=== PATIENT | female | born 1975 | race Caucasian/White ===

== ENCOUNTER 2016-05-10 07:00 | Day surgery (SDC) | payer OTHER ==
[~2016-05-10 07:00] MED LIST: RINGERS SOLUTION,LACTATED 1,000 ML IV PRN
[2016-05-10] MEDS ORDERED: RINGERS SOLUTION,LACTATED 1,000 ML IV ONE ×3 (07:35→13:40)
[2016-05-10] MEDS ORDERED: LIDOCAINE HCL/EPINEPHRINE 50 ML VIAL IJ ONE ×2 (08:00)
[2016-05-10] MEDS ORDERED: ceFAZolin SODIUM 1 GM VIAL IV ONE (08:25)
[2016-05-10] MEDS ORDERED: MORPHINE SULFATE 2 MG/ML DISP.SYRIN IV PRN (15:30)
[2016-05-10] MEDS ORDERED: IBUPROFEN 800 MG TABLET PO PRN (15:31)
[2016-05-10] MEDS ORDERED: oxyCODONE HCL/ACETAMINOPHEN 1 TAB TABLET PO PRN (15:31)
--- NOTE | 2016-05-10 16:30 | OR ---
Operative Report - Dictated Report Narrative: DATE OF PROCEDURE: 05/10/2016 INDICATION: 40-year-old with chronic pelvic pain, dysmenorrhea, persistent complex left adnexal mass, and menometrorrhagia presents for surgical evaluation. PREOPERATIVE DIAGNOSIS: Chronic pelvic pain, dysmenorrhea, menometrorrhagia, persistent left ovarian cyst POSTOPERATIVE DIAGNOSIS: Same, with extensive endometriosis, endometrial polyps , uterine fibroids, left ovarian endometrioma PROCEDURE: Diagnostic laparoscopy, extensive excision of endometriosis, coagulation of endometriosis, lysis of adhesions, bilateral ureteral lysis, left ovarian cystectomy, diagnostic hysteroscopy, D&C SURGEON: Keanu Ford D.O. BOBJ DEVELOPER: None ANESTHESIA: General ESTIMATED BLOOD LOSS: 50 mL URINE OUTPUT: 600 mL clear urine FLUID REPLACEMENT: 2100 mL crystalloid FINDINGS: Hemosiderin deposits scattered over the entire omentum, abdominal cavity, entire lower pelvis and pelvic organs, bright red endometriosis lesions on the uterus, tubes, ovaries, left and right ovarian fossa, uterosacral ligaments, and anterior/posterior cul-de-sacs. Left ovarian endometrioma adherent to the pelvic sidewall, appendix with edematous firm distal tip, uterus sounded to 9 cm, 1 cm serosal fibroid, 3-4 cm Submucosal/intramural fibroid at the fundus, thickened endometrial lining with multiple polyps SPECIMEN(S): 1. Anterior cul-de-sac peritoneum. 2. Right pelvic sidewall peritoneum. 3. Posterior cul-de-sac peritoneum. 4. Right posterior cul-de- sac/sacral ligament peritoneum. 5. Left ovarian cyst wall of endometrioma. 6. Left pelvic sidewall/posterior cul-de-sac/uterosacral ligament peritoneum. 7. Appendix. 8. Endometrial curettings with endometrial polyps. TECHNIQUE: Patient was taken to the operating room, SCDs were placed, 2 g of Ancef were given, general anesthesia was obtained, and the patient was placed in dorsal lithotomy position. The anterior lip of the cervix was grasped with a long Allis clamp and a Valchev manipulator was inserted into the cervical canal and attached to the Allis clamp as a means to manipulate the uterus. Boyce catheter was inserted to gravity drainage. Gloves were changed and attention was turned to the abdomen where the umbilicus was injected with a 1% lidocaine epinephrine solution through the underlying layers. Scalpel was used to score the skin and a 12 mm non-bladed trocar was inserted via direct technique under direct visualization. Pneumoperitoneum was created with CO2 gas. 3 5 mm non-bladed trochars were inserted suprapubically and in the left and right lower quadrants in a similar fashion. Through these ports the surgery was carried out with findings as noted above. Using a combination of J hook cautery and holmium laser, the peritoneal endometrial implants were excised. The pelvic peritoneum was dense and adherent and required extensive retroperitoneal dissection of the underlying ureters and vessels in order to remove it completely. Endometrial implants on the uterus, tubes, and ovaries were coagulated with Kleppinger's. Left tubo-ovarian adhesions were excised and lysed in order to access the ovarian cyst. Using the J hook cautery, an incision was made into the ovarian cortex on the antimesenteric side overlying the ovarian cyst. Start chocolate/motor oil fluid drained from the incision. The cyst wall was densely adherent and difficult to remove. Once removed, the ovarian cortex was coagulated with Kleppinger's and the J hook cautery to assure hemostasis. The distal tip of the appendix appeared abnormal; containing a possible mucocele. Because extensive endometriosis was found within the abdominal/pelvic cavity, the appendix was removed to prevent future confusion if the patient presented with right lower quadrant pain. The periappendiceal fat was grasped and tented up to allow placement of the laparoscopic stapler across the appendix and attached periappendiceal fat. After the red vascular cartridge was deployed, the appendix was placed in an Endobag and removed through the 12 mm port. Hemostasis was noted. The abdomen and pelvis was copiously irrigated with 3 L of saline. Irrigation was removed along with CO2 gas. The trochars were removed under direct visualization. The fascia of the 12 mm port was closed with a single interrupted 0 Vicryl suture. All subcutaneous incisions were closed with 4-0 Monocryl. Exophin adhesive dressing was placed over all skin incisions. Attention was turned to the pelvis. Valchev manipulator was removed from the cervix and a 5 mm 30 diagnostic hysteroscope was inserted into the uterine cavity with findings as noted above. The hysteroscope was removed and a #3 curette was used to remove the polyps and sample the entire uterine cavity. The hysteroscope was reinserted noting thorough sampling of the uterine cavity, and a large submucosal fibroid in the center of the fundus of the uterus. This fibroid was not identified on previous radiological imaging and its depth of penetration into the uterine wall was unknown. The patient's desire for future fertility versus proceeding with hysterectomy in the future was also unknown, therefore the fibroid was not removed. All instruments removed from the cervix and vagina. Boyce catheter was removed. Sponge, lap, instrument, and needle count were correct x 2. DISPOSITION: The patient was transferred to postanesthesia care unit in good condition.
[2016-05-10 17:33] VITALS: BP 125/89
== END 2016-05-10 07:01 | disposition home or self-care (01) ==
LOC: AMB 07:00
PROVIDERS: ATTEND Obstetrics & Gynecology
PROC: 0UB94ZZ Excision of Uterus, Percutaneous Endoscopic Approach (ICD-10-PCS; 2016-05-10)
PROC: 0UB24ZZ Excision of Bilateral Ovaries, Percutaneous Endoscopic Approach (ICD-10-PCS; 2016-05-10)
PROC: 0UDB8ZX Extraction of Endometrium, Via Natural or Artificial Opening Endoscopic, Diagnostic (ICD-10-PCS; 2016-05-10)
PROC: 0UJD8ZZ Inspection of Uterus and Cervix, Via Natural or Artificial Opening Endoscopic (ICD-10-PCS; 2016-05-10)
PROC: 0UJ88ZZ Inspection of Fallopian Tube, Via Natural or Artificial Opening Endoscopic (ICD-10-PCS; 2016-05-10)
PROC: 0TN74ZZ Release Left Ureter, Percutaneous Endoscopic Approach (ICD-10-PCS; 2016-05-10)
PROC: 0TN64ZZ Release Right Ureter, Percutaneous Endoscopic Approach (ICD-10-PCS; 2016-05-10)
PROC: 0DTJ4ZZ Resection of Appendix, Percutaneous Endoscopic Approach (ICD-10-PCS; 2016-05-10)
PROC: 0UN64ZZ Release Left Fallopian Tube, Percutaneous Endoscopic Approach (ICD-10-PCS; 2016-05-10)
PROC: 0UN14ZZ Release Left Ovary, Percutaneous Endoscopic Approach (ICD-10-PCS; 2016-05-10)
PROC: 0DBW4ZZ Excision of Peritoneum, Percutaneous Endoscopic Approach (ICD-10-PCS; principal; 2016-05-10 08:00)
DX: N83.202 Unspecified ovarian cyst, left side (principal); N92.1 Excessive and frequent menstruation with irregular cycle; N94.6 Dysmenorrhea, unspecified; F32.9 Major depressive disorder, single episode, unspecified; F17.200 Nicotine dependence, unspecified, uncomplicated; Z68.1 Body mass index [BMI] 19.9 or less, adult